=== PATIENT | female | born 1970 | race Caucasian/White ===

== ENCOUNTER 2017-12-16 08:42 | Emergency (ER) | payer OTHER ==
[~2017-12-16] VITALS: Ht 154.9 cm; Wt 49.0 kg
== END 2017-12-16 21:57 | disposition home or self-care (01) ==
LOC: ER 08:42
DX: J32.8 Other chronic sinusitis (principal); R11.11 Vomiting without nausea; J01.00 Acute maxillary sinusitis, unspecified

== ENCOUNTER 2018-04-16 14:15 | Inpatient (IN) | payer OTHER ==
[~2018-04-16] VITALS: Ht 154.9 cm; Wt 49.0 kg
[2018-04-20] MEDS ORDERED: ONDANSETRON ODT4 MG PO (10:29)
[2018-04-20] MEDS ORDERED: OXYC1TAB9 PO (10:29)
== END 2018-04-20 11:03 | disposition home or self-care (01) | DRG 743 ==
LOC: O/R 04-18 09:57 → OB/GYN 04-18 09:57 → SURH 04-18 14:15 → OB/GYN 04-18 16:12
PROVIDERS: Obstetrics & Gynecology
PROC: 0UT70ZZ Resection of Bilateral Fallopian Tubes, Open Approach (ICD-10-PCS; 2018-04-18)
PROC: 0UT90ZZ Resection of Uterus, Open Approach (ICD-10-PCS; principal; 2018-04-18 11:30)
DX: N80.0 Endometriosis of uterus (principal); D25.2 Subserosal leiomyoma of uterus

== ENCOUNTER 2018-12-01 12:25 | Emergency (ER) | payer OTHER ==
[~2018-12-01] VITALS: Ht 154.9 cm; Wt 54.4 kg
[~2018-12-01 12:25] MED LIST: ONDANSETRON ODT4 MG PO; OXYC1TAB9 PO
== END 2018-12-01 16:21 | disposition home or self-care (01) ==
LOC: ER 12:25
DX: N83.291 Other ovarian cyst, right side (principal); R10.31 Right lower quadrant pain